=== PATIENT | male | born 1990 | race Caucasian/White ===

== ENCOUNTER 2018-06-15 09:43 | Inpatient (IN) | payer OTHER ==
[2018-06-15] MEDS ORDERED: ACETAMINOPHEN TAB 500 MG TAB PO STA (10:22)
[2018-06-15] MEDS ORDERED: SODIUM CHLORIDE 0.9% 1,000 ML IV STA (10:22)
--- NOTE | 2018-06-15 10:31 | ED ---
General Adult HPI - General Source: patient, family, RN notes reviewed Mode of arrival: wheelchair Limitations: no limitations <Hai Russell - Last Filed: 06/15/18 12:33> <Agus Burdick - Last Filed: 06/15/18 12:46> - General Chief complaint: Fever Stated complaint: Leg Pain, Poss Blood Clot Time Seen by Provider: 06/15/18 10:18 - History of Present Illness Initial comments: 28-year-old male with no significant past medical history, presented to the emergency room today with chief complaint of increased pain and rash to the right leg with a fever. Patient states his symptoms started 2 days ago. Patient denies ever having similar symptoms in the past. He also admits that he is felt some body aches chills and has had a headache. Patient does admit that he went to urgent care was advised coming here to the emergency room for further evaluation. Patient denies any recent shortness of breath, chest pain, back pain, abdominal pain, nausea or vomiting, numbness or tingling, visual changes, or any other complaints. (Hai Russell) - Related Data Home Medications Medication Instructions Recorded Confirmed No Known Home Medications 06/01/14 06/15/18 Allergies Allergy/AdvReac Type Severity Reaction Status Date / Time No Known Allergies Allergy Verified 06/15/18 10:06 Review of Systems ROS Other: All systems not noted in ROS Statement are negative. <Hai Russell - Last Filed: 06/15/18 12:33> ROS Other: All systems not noted in ROS Statement are negative. <Agus Burdick - Last Filed: 06/15/18 12:46> ROS Statement: Those systems with pertinent positive or pertinent negative responses have been documented in the HPI. Past Medical History Past Medical History: No Reported History History of Any Multi-Drug Resistant Organisms: None Reported Past Surgical History: No Surgical Hx Reported Past Psychological History: No Psychological Hx Reported Smoking Status: Never smoker Past Alcohol Use History: Occasional Past Drug Use History: None Reported <Hai Russell - Last Filed: 06/15/18 12:33> General Exam Limitations: no limitations <Hai Russell - Last Filed: 06/15/18 12:33> <Agus Burdick - Last Filed: 06/15/18 12:46> - General Exam Comments Initial Comments: General: The patient is awake and alert, in no distress, and does not appear acutely ill. Eye: Pupils are equal, round and reactive to light, extra-ocular movements are intact. No nystagmus. There is normal conjunctiva bilaterally. No signs of icterus. Ears, nose, mouth and throat: There are moist mucous membranes and no oral lesions. Neck: The neck is supple, there is no tenderness or JVD. Cardiovascular: There is a regular rate and rhythm. No murmur, rub or gallop is appreciated. Respiratory: Lungs are clear to auscultation, respirations are non-labored, breath sounds are equal. No wheezes, stridor, rales, or rhonchi. Gastrointestinal: Soft, non-distended, non-tender abdomen without masses or organomegaly noted. Musculoskeletal: Normal ROM, no tenderness. Strength 5/5. Sensation intact. Pedal Pulses equal bilaterally 2+. Neurological: A&O x 3. CN II-XII intact, There are no obvious motor or sensory deficits. Coordination appears grossly intact. Speech is normal. Skin: Redness and swelling to the right lower extremity. Rash to the anterior aspect going up to just below the right knee. Psychiatric: Cooperative, appropriate mood & affect, normal judgment. (Hai Russell) Course <Hai Russell - Last Filed: 06/15/18 12:33> <Agus Burdick - Last Filed: 06/15/18 12:46> Vital Signs 06/15/18 06/15/18 09:49 12:36 Temperature 100.1 F H 98.5 F Pulse Rate 104 H 74 Respiratory 20 18 Rate Blood Pressure 119/75 115/73 O2 Sat by Pulse 96 96 Oximetry - Reevaluation(s) Reevaluation #1: 06/15/18 12:44 Patient was reevaluated by myself, Dr. Burdick. Patient does have erythema right lower leg with some streaking up to the mid thigh. Patient does meet sepsis criteria, diagnosed at 11:59 AM. Patient has been provided IV antibiotics. Lactic acid and blood culture have been ordered. Case was discussed in detail with Dr. gross, who will admit for hospital call. Patient and family were updated. (Agus Burdick) Medical Decision Making - Lab Data Result diagrams: 06/15/18 10:53 06/15/18 10:53 <Hai Russell - Last Filed: 06/15/18 12:33> - Lab Data Result diagrams: 06/15/18 10:53 06/15/18 10:53 <Agus Burdick - Last Filed: 06/15/18 12:46> - Medical Decision Making Patient's labs been reviewed does show white count 15,000 with a lactic acid 2.4. Patient to have fever at triage. Had taken ibuprofen prior to arrival. Was given Tylenol. Resting comfortably at this time. Also negative for any evidence of a DVT. X-ray reviewed unremarkable. Patient started on antibiotics Unasyn to cover for infection be admitted for right lower leg cellulitis and sepsis. Patient's blood pressure stable and no need for further bolus of IV fluids. (Hai Russell) - Lab Data Lab Results 06/15/18 06/15/18 06/15/18 Range/Units 10:33 10:53 10:53 WBC 15.6 H (3.8-10.6) k/uL RBC 5.10 (4.30-5.90) m/uL Hgb 14.8 (13.0-17.5) gm/dL Hct 41.6 (39.0-53.0) % MCV 81.5 (80.0-100.0) fL MCH 29.1 (25.0-35.0) pg MCHC 35.7 (31.0-37.0) g/dL RDW 13.5 (11.5-15.5) % Plt Count 220 (150-450) k/uL Neutrophils % 89 % Lymphocytes % 5 % Monocytes % 5 % Eosinophils % 0 % Basophils % 0 % Neutrophils # 13.8 H (1.3-7.7) k/uL Lymphocytes # 0.8 L (1.0-4.8) k/uL Monocytes # 0.7 (0-1.0) k/uL Eosinophils # 0.1 (0-0.7) k/uL Basophils # 0.0 (0-0.2) k/uL Hyperchromasia Slight Sodium 133 L (137-145) mmol/L Potassium 4.2 (3.5-5.1) mmol/L Chloride 99 (98-107) mmol/L Carbon Dioxide 20 L (22-30) mmol/L Anion Gap 14 mmol/L BUN 13 (9-20) mg/dL Creatinine 0.94 (0.66-1.25) mg/dL Est GFR (CKD-EPI)AfAm >90 (>60 ml/min/1.73 sqM) Est GFR (CKD-EPI)NonAf >90 (>60 ml/min/1.73 sqM) Glucose 129 H (74-99) mg/dL Plasma Lactic Acid Solomon (0.7-2.0) mmol/L Calcium 9.0 (8.4-10.2) mg/dL Total Bilirubin 1.3 (0.2-1.3) mg/dL AST 24 (17-59) U/L ALT 21 (21-72) U/L Alkaline Phosphatase 54 (38-126) U/L Total Protein 7.6 (6.3-8.2) g/dL Albumin 4.0 (3.5-5.0) g/dL Urine Color Dark Yellow Urine Appearance Cloudy (Clear) Urine pH 6.0 (5.0-8.0) Ur Specific [place] 1.029 (1.001-1.035) Urine Protein 2+ H (Negative) Urine Glucose (UA) Negative (Negative) Urine Ketones Trace H (Negative) Urine Blood Negative (Negative) Urine Nitrite Negative (Negative) Urine Bilirubin Negative (Negative) Urine Urobilinogen <2.0 (<2.0) mg/dL Ur Leukocyte Esterase Negative (Negative) Urine RBC 2 (0-5) /hpf Urine WBC 1 (0-5) /hpf Ur Squamous Epith Cells <1 (0-4) /hpf Urine Bacteria Rare H (None) /hpf Urine Mucus Many H (None) /hpf 06/15/18 Range/Units 10:53 WBC (3.8-10.6) k/uL RBC (4.30-5.90) m/uL Hgb (13.0-17.5) gm/dL Hct (39.0-53.0) % MCV (80.0-100.0) fL MCH (25.0-35.0) pg MCHC (31.0-37.0) g/dL RDW (11.5-15.5) % Plt Count (150-450) k/uL Neutrophils % % Lymphocytes % % Monocytes % % Eosinophils % % Basophils % % Neutrophils # (1.3-7.7) k/uL Lymphocytes # (1.0-4.8) k/uL Monocytes # (0-1.0) k/uL Eosinophils # (0-0.7) k/uL Basophils # (0-0.2) k/uL Hyperchromasia Sodium (137-145) mmol/L Potassium (3.5-5.1) mmol/L Chloride (98-107) mmol/L Carbon Dioxide (22-30) mmol/L Anion Gap mmol/L BUN (9-20) mg/dL Creatinine (0.66-1.25) mg/dL Est GFR (CKD-EPI)AfAm (>60 ml/min/1.73 sqM) Est GFR (CKD-EPI)NonAf (>60 ml/min/1.73 sqM) Glucose (74-99) mg/dL Plasma Lactic Acid Solomon 2.4 H* (0.7-2.0) mmol/L Calcium (8.4-10.2) mg/dL Total Bilirubin (0.2-1.3) mg/dL AST (17-59) U/L ALT (21-72) U/L Alkaline Phosphatase (38-126) U/L Total Protein (6.3-8.2) g/dL Albumin (3.5-5.0) g/dL Urine Color Urine Appearance (Clear) Urine pH (5.0-8.0) Ur Specific [place] (1.001-1.035) Urine Protein (Negative) Urine Glucose (UA) (Negative) Urine Ketones (Negative) Urine Blood (Negative) Urine Nitrite (Negative) Urine Bilirubin (Negative) Urine Urobilinogen (<2.0) mg/dL Ur Leukocyte Esterase (Negative) Urine RBC (0-5) /hpf Urine WBC (0-5) /hpf Ur Squamous Epith Cells (0-4) /hpf Urine Bacteria (None) /hpf Urine Mucus (None) /hpf Disposition Is patient prescribed a controlled substance at d/c from ED?: No Time of Disposition: 12:34 <Hai Russell - Last Filed: 06/15/18 12:33> <Agus Burdick - Last Filed: 06/15/18 12:46> Clinical Impression: Cellulitis of right leg, Sepsis Disposition: ADMITTED IP TO THIS HOSP Condition: Good
[2018-06-15 11:07] LABS: Basophils % (A) 0 %; Eosinophils # (A) 0.1 k/uL (0-0.7); Eosinophils % (A) 0 %; HCT 41.6 % (39.0-53.0); HGB 14.8 gm/dL (13.0-17.5); Hyperchromasia Slight; Lymphocytes # (A) 0.8 k/uL (1.0-4.8); Lymphocytes % (A) 5 %; MCH 29.1 pg (25.0-35.0); MCHC 35.7 g/dL (31.0-37.0); MCV 81.5 fL (80.0-100.0); Mean Platelet Volume 6.7; Monocytes # (A) 0.7 k/uL (0-1.0); Monocytes % (A) 5 %; Neutrophils # (A) 13.8 k/uL (1.3-7.7); Neutrophils % (A) 89 %; Platelet Count 220 k/uL (150-450); RDW 13.5 % (11.5-15.5); WBC 15.6 k/uL (3.8-10.6)
[2018-06-15 11:14] LABS: Appearance,Urine Cloudy (Clear); Bacteria,Urine Rare /hpf; Bilirubin,Urine Negative (Negative); Blood,Urine Negative (Negative); Color,Urine Dark Yellow; Glucose,Urine (UA) Negative (Negative); Ketones,Urine Trace (Negative); Leukocyte Esterase,Urine Negative (Negative); Mucus,Urine Many /hpf; Nitrite,Urine Negative (Negative); Protein,Urine 2+ (Negative); RBC,Urine 2 /hpf (0-5); Specific Gravity,Urine 1.029 (1.001-1.035); Squamous Epithelial Cell,Urine <1 /hpf (0-4); Urobilinogen,Urine <2.0 mg/dL (<2.0)
[2018-06-15 11:18] LABS: ALT 21 U/L (21-72); AST 24 U/L (17-59); Alkaline Phosphatase 54 U/L (38-126); Anion Gap 14 mmol/L; Blood Urea Nitrogen 13 mg/dL (9-20); Carbon Dioxide 20 mmol/L (22-30); Chloride 99 mmol/L (98-107); Glucose 129 mg/dL (74-99); Potassium 4.2 mmol/L (3.5-5.1); Sodium 133 mmol/L (137-145); Total Bilirubin 1.3 mg/dL (0.2-1.3); Total Protein 7.6 g/dL (6.3-8.2)
--- NOTE | 2018-06-15 11:42 | US ---
EXAMINATION TYPE: US venous doppler duplex LE RT DATE OF EXAM: 06/15/2018 11:21 AM COMPARISON: NONE CLINICAL HISTORY: Pain. redness in right leg SIDE PERFORMED: Right TECHNIQUE: The lower extremity deep venous system is examined utilizing real time linear array sonog sheryl with graded compression, doppler sonography and color-flow sonography. VESSELS IMAGED: External Iliac Vein (EIV) Common Femoral Vein Deep Femoral Vein Greater Saphenous Vein * Femoral Vein Popliteal Vein Small Saphenous Vein * Proximal Calf Veins (* superficial vessels) Right Leg: Negative for DVT IMPRESSION: No evidence for DVT at this time.
[2018-06-15] MEDS ORDERED: AMPICILLIN-SULBACTAM 3 GM in SODIUM CHLORIDE 0.9% 100 ML IVPB STA (11:59)
[2018-06-15] MEDS ORDERED: ONDANSETRON 4 MG/2 ML VIAL IVP PRN (12:35)
[2018-06-15] MEDS ORDERED: SODIUM CHLORIDE 0.9% 1,000 ML IV ONE (12:35)
[2018-06-15] MEDS ORDERED: ACETAMINOPHEN TAB 325 MG TAB PO PRN (12:35)
[2018-06-15] MEDS ORDERED: NALOXONE 0.4 MG/ML 1 ML VIAL IV PRN (12:35)
--- NOTE | 2018-06-15 12:41 | XR ---
EXAMINATION TYPE: XR tibia fibula RT DATE OF EXAM: 06/15/2018 CLINICAL HISTORY: pain TECHNIQUE: AP and lateral images of the right tibia and fibula are obtained. COMPARISON: None. FINDINGS: There is no acute fracture/dislocation evident. The joint spaces appear within normal perez its. The overlying soft tissue appears unremarkable. IMPRESSION: There is no acute fracture or dislocation seen. ICD 10 NO FRACTURE, INITIAL EVALUATION
--- NOTE | 2018-06-15 15:43 | P.HPIM ---
History of Present Illness 8-year-old male with no significant past medical history, presented to the emergency room today with chief complaint of increased pain and rash to the right leg with a fever. Patient states his symptoms started 2 days ago. Patient denies ever having similar symptoms in the past. He also admits that he is felt some body aches chills and has had a headache. Patient does admit that he went to urgent care was advised coming here to the emergency room for further evaluation. Patient denies any recent shortness of breath, chest pain, back pain, abdominal pain, nausea or vomiting, numbness or tingling, visual changes, or any other complaints. Patient does have leukocytosis and also bit hyponatremic patient is on IV fluids and patient was started on Unasyn which is being changed to cefazolin never had any history of MRSA in the past. Review of Systems REVIEW OF SYSTEMS: CONSTITUTIONAL: no malaise, no fatigue. HEENT: No recent visual problems or hearing problems. Denied any sore throat. CARDIOVASCULAR: No chest pain, orthopnea, PND, no palpitations, no syncope. PULMONARY: No shortness of breath, no cough, no hemoptysis. GASTROINTESTINAL: No diarrhea, no nausea, no vomiting, no abdominal pain. Normoactive bowel sounds. NEUROLOGICAL: No headaches, no weakness, no numbness. HEMATOLOGICAL: Denies any bleeding or petechiae. GENITOURINARY: Denies any burning micturition, frequency, or urgency. MUSCULOSKELETAL/RHEUMATOLOGICAL: Denies any joint pain, swelling, or any muscle pain. ENDOCRINE: Denies any polyuria or polydipsia. The rest of the 14-point review of systems is negative. Past Medical History Past Medical History: No Reported History History of Any Multi-Drug Resistant Organisms: None Reported Past Surgical History: No Surgical Hx Reported Additional Past Anesthesia/Blood Transfusion Reaction / Comment(s): Pt has never had anesthesia. Smoking Status: Never smoker - Past Family History Father Family Medical History: No Reported History Additional Family Medical History / Comment(s): Father is healthy Mother Family Medical History: No Reported History Additional Family Medical History / Comment(s): Mother is healthy Medications and Allergies Home Medications Medication Instructions Recorded Confirmed Type No Known Home Medications 06/01/14 06/15/18 History Allergies Allergy/AdvReac Type Severity Reaction Status Date / Time No Known Allergies Allergy Verified 06/15/18 10:06 Physical Exam Vitals: Vital Signs Temp Pulse Pulse Resp BP BP Pulse Ox 06/15/18 13:47 97.8 F 76 18 122/76 95 06/15/18 13:22 98.5 F 84 18 119/76 98 06/15/18 12:36 98.5 F 74 18 115/73 96 06/15/18 09:49 100.1 F H 104 H 20 119/75 96 Intake and Output 06/15/18 06/15/18 06/15/18 06:59 14:59 22:59 Other: # Voids 1 # Bowel Movements 0 Weight 125.191 kg PHYSICAL EXAMINATION: GENERAL: The patient is alert and oriented x3, not in any acute distress. Well developed, well nourished. HEENT: Pupils are round and equally reacting to light. EOMI. No scleral icterus. No conjunctival pallor. Normocephalic, atraumatic. No pharyngeal erythema. No thyromegaly. CARDIOVASCULAR: S1 and S2 present. No murmurs, rubs, or gallops. PULMONARY: Chest is clear to auscultation, no wheezing or crackles. ABDOMEN: Soft, nontender, nondistended, normoactive bowel sounds. No palpable organomegaly. MUSCULOSKELETAL: No joint swelling or deformity. EXTREMITIES: No cyanosis, clubbing, or pedal edema. NEUROLOGICAL: Gross neurological examination did not reveal any focal deficits. SKIN: Patient has a circumferential patchy redness with local is of temperature Results CBC & Chem 7: 06/15/18 10:53 06/15/18 10:53 Labs: Abnormal Lab Results - Last 24 Hours (Table) 06/15/18 06/15/18 06/15/18 Range/Units 10:33 10:53 10:53 WBC 15.6 H (3.8-10.6) k/uL Neutrophils # 13.8 H (1.3-7.7) k/uL Lymphocytes # 0.8 L (1.0-4.8) k/uL Sodium 133 L (137-145) mmol/L Carbon Dioxide 20 L (22-30) mmol/L Glucose 129 H (74-99) mg/dL Plasma Lactic Acid Solomon (0.7-2.0) mmol/L Urine Protein 2+ H (Negative) Urine Ketones Trace H (Negative) Urine Bacteria Rare H (None) /hpf Urine Mucus Many H (None) /hpf 06/15/18 Range/Units 10:53 WBC (3.8-10.6) k/uL Neutrophils # (1.3-7.7) k/uL Lymphocytes # (1.0-4.8) k/uL Sodium (137-145) mmol/L Carbon Dioxide (22-30) mmol/L Glucose (74-99) mg/dL Plasma Lactic Acid Solomon 2.4 H* (0.7-2.0) mmol/L Urine Protein (Negative) Urine Ketones (Negative) Urine Bacteria (None) /hpf Urine Mucus (None) /hpf Thrombosis Risk Factor Assmnt - Choose All That Apply Any of the Below Risk Factors Present?: Yes Each Factor Represents 1 point: Obesity (BMI >25), Sepsis (< 1month) Other Risk Factors: No Other congenital or acquired thrombophilia - If yes, enter type in comment: No Thrombosis Risk Factor Assessment Total Risk Factor Score: 2 Thrombosis Risk Factor Assessment Level: Low Risk Assessment and Plan Plan: -Cellulitis of the right lower extremity: Patient will be started on ceftezole inhibitors and improvement patient will be discharged Tomorrow patient has sepsis secondary to select is - hypovolemic hyponatremia secondary to sepsis and prerenal azotemia continue with IV fluids repeat labs tomorrow Obesity: Counseling was provided
[2018-06-15] MEDS ORDERED: ceFAZolin 2,000 MG in DEXTROSE/WATER 1 50ML.BAG IVPB SCH (16:00)
[2018-06-15] MEDS: ceFAZolin IN SWFI 2 GM/20 ML SYRINGE IVP SCH (16:24)
[2018-06-15] MEDS ORDERED: AMPICILLIN-SULBACTAM 3 GM in SODIUM CHLORIDE 0.9% 100 ML IVPB SCH (18:00)
[2018-06-15 18:57] LABS: Glucose,Whole Blood 124 mg/dL (75-99)
[2018-06-16] MEDS: IBUPROFEN 400 MG TAB PO PRN ×4 (00:58→21:20)
[2018-06-16] MEDS: ceFAZolin IN SWFI 2 GM/20 ML SYRINGE IVP SCH ×3 (01:00→15:26)
[2018-06-16 09:26] LABS: Basophils % (A) 0 %; Eosinophils # (A) 0.1 k/uL (0-0.7); Eosinophils % (A) 1 %; HCT 37.7 % (39.0-53.0); HGB 13.1 gm/dL (13.0-17.5); Lymphocytes # (A) 1.2 k/uL (1.0-4.8); Lymphocytes % (A) 11 %; MCH 28.8 pg (25.0-35.0); MCHC 34.7 g/dL (31.0-37.0); Mean Platelet Volume 7.4; Monocytes # (A) 0.5 k/uL (0-1.0); Monocytes % (A) 5 %; Neutrophils # (A) 8.9 k/uL (1.3-7.7); Neutrophils % (A) 82 %; Platelet Count 172 k/uL (150-450); RBC 4.54 m/uL (4.30-5.90); RDW 13.7 % (11.5-15.5); WBC 10.9 k/uL (3.8-10.6)
[2018-06-16 09:47] LABS: ALT 20 U/L (21-72); AST 16 U/L (17-59); Albumin 2.9 g/dL (3.5-5.0); Alkaline Phosphatase 55 U/L (38-126); Anion Gap 8 mmol/L; Blood Urea Nitrogen 10 mg/dL (9-20); Calcium 8.2 mg/dL (8.4-10.2); Carbon Dioxide 25 mmol/L (22-30); Chloride 107 mmol/L (98-107); Glucose 160 mg/dL (74-99); Potassium 4.3 mmol/L (3.5-5.1); Sodium 140 mmol/L (137-145)
[2018-06-16 10:12] VITALS: BMI 38.5
[2018-06-17] MEDS: ceFAZolin IN SWFI 2 GM/20 ML SYRINGE IVP SCH ×4 (00:03→23:23)
[2018-06-17] MEDS: IBUPROFEN 400 MG TAB PO PRN ×3 (05:47→20:45)
--- NOTE | 2018-06-17 07:12 | CONS ---
CONSULTATION DATE OF SERVICE: 06/16/2018 REASON FOR CONSULTATION: Right lower extremity cellulitis. HISTORY OF PRESENT ILLNESS: The patient is a 28-year-old male presenting to the ER at [facility] with chief complaints of right leg swelling and redness of 2 days duration. The patient said that on Wednesday this week the patient started having a fever with chills and pain in his right leg area. The pain was mostly throbbing, at times dull aching, 5 to 6 out of 10. The next day he noticed the right leg was getting swollen and red as well with warmth to it and he started having a fever with rigors and chills. Fever has been as high as 102 degrees Fahrenheit. The patient initially did go to an Urgent Care and was advised to go to the ER for further evaluation of the same. The patient was evaluated by the ER physician. The patient did have a lower extremity Doppler that was negative for DVT. X-rays were negative for any bony changes. On presentation, the patient did have a fever of 100.1 and his white count was elevated to 15.6. The patient has been diagnosed with acute right lower extremity cellulitis, started on cefazolin 2 grams along with Silvadene cream. Infectious Disease was consulted today for further recommendation regarding antibiotic therapy. REVIEW OF SYSTEMS: CONSTITUTIONAL: Positive for weakness along with the fever and chills. EYES: No complaint. ENT: No complaint. RESPIRATORY: No complaint. CARDIOVASCULAR: No complaint. GENITOURINARY: No complaint. GASTROINTESTINAL: No complaint. MUSCULOSKELETAL: No complaint. INTEGUMENTARY: As per HPI. PSYCHOLOGICAL: No complaint. ENDOCRINE: No complaint. NEUROLOGIC: No complaint. PAST MEDICAL HISTORY: No illnesses. PAST SURGICAL HISTORY: No surgeries. SOCIAL HISTORY: The patient denies smoking, drinking, or drug use. FAMILY HISTORY: No pertinent findings noticed. ALLERGIES: No known drug allergies. MEDICATIONS: Medications include the patient is currently on Tylenol, cefazolin 2 grams q.8, Motrin, Narcan, and Zofran. PHYSICAL EXAMINATION: On examination, blood pressure 122/86, pulse 106, temperature 98.2. He is 96% on room air. General description is a middle-aged male lying in bed in no distress. No tachypnea or accessory muscle of respiration use. HEENT examination shows no pallor or scleral icterus. Oral mucous membrane is dry. No pharyngeal erythema or thrush. NECK: Trachea central. No thyromegaly. LUNGS: Unlabored breathing, clear to auscultation anteriorly. No wheeze or crackle. HEART: S1, S2. Regular rate and rhythm. ABDOMEN: Soft, no tenderness. No guarding or rigidity. Right leg is swollen and red and warm to touch. No evidence of athlete's foot. No skin breakdown or any drainage. NEUROLOGICAL: The patient is awake, alert, oriented x3. Mood and affect normal. LABS: Hemoglobin is 13.1, white count of 10.9. BUN of 10, creatinine 0.69. Lactic acid elevated on admission 2.4 down to 2 today. Blood cultures have been negative so far. Lower extremity Doppler was negative for DVT. DIAGNOSTIC IMPRESSION AND PLAN: Patient with acute right lower extremity cellulitis in this patient who does have a diffuse swelling and redness likely representing a streptococcal cellulitis, clinically doubt methicillin-resistant Staphylococcus aureus infection. PLAN: 1. Discontinue the Silvadene. 2. Cefazolin 2 grams q.8 hours for at least another 24 hours. 3. JANKI wrap from just above the toe to below the knee. 4. We will re-evaluate the patient tomorrow and if the patient did have an overall clinical improvement, he will be able to finish therapy with oral Keflex 500 mg q.6 hours for another 10 days with close outpatient followup. MMCYNL / KENNEY: [id number] /
[2018-06-17] MEDS ORDERED: SILVER sulfADIAZINE Cream 400 GM 1 APPLIC APPLIC TOPICAL SCH (09:00)
--- NOTE | 2018-06-17 16:19 | P.PN ---
Subjective Progress Note Date: 06/16/18 Progress note being dictated for Dr. Weber Interval history: This is 28 old male with no significant past medical history, presented to the emergency room today with chief complaint of increased pain and rash to the right leg with a fever. Patient states his symptoms started 2 days ago. Patient denies ever having similar symptoms in the past. He also admits that he is felt some body aches chills and has had a headache. Patient does admit that he went to urgent care was advised coming here to the emergency room for further evaluation. Patient denies any recent shortness of breath, chest pain, back pain, abdominal pain, nausea or vomiting, numbness or tingling , visual changes, or any other complaints. Patient does have leukocytosis and also bit hyponatremic patient is on IV fluids and patient was started on Unasyn which is being changed to cefazolin never had any history of MRSA in the past. 06/16/2018 T-max 100.1. Doppler negative for DVT. Cellulitis extending up into the thigh area. Maintained on IV antibiotics of Cefazolin. Evaluated by infectious disease. Sodium has normalized with IV hydration. Objective - Vital Signs Vital signs: Vital Signs Temp 99.2 F 06/16/18 15:00 Pulse 106 H 06/16/18 15:00 Resp 18 06/16/18 15:00 BP 128/74 06/16/18 15:05 Pulse Ox 96 06/16/18 15:00 Intake & Output 06/16/18 06/16/18 06/17/18 06:59 18:59 06:59 Intake Total 400 960 Balance 400 960 Weight 125.191 kg Intake: Oral 400 960 Other: Voiding Method Toilet # Voids 2 - Exam GENERAL: The patient is alert and oriented x3, not in any acute distress. Well developed, well nourished. HEENT: Pupils are round and equally reacting to light. EOMI. No scleral icterus. No conjunctival pallor. Normocephalic, atraumatic. No pharyngeal erythema. No thyromegaly. CARDIOVASCULAR: S1 and S2 present. No murmurs, rubs, or gallops. PULMONARY: Chest is clear to auscultation, no wheezing or crackles. ABDOMEN: Soft, nontender, nondistended, normoactive bowel sounds. No palpable organomegaly. MUSCULOSKELETAL: No joint swelling or deformity. EXTREMITIES: No cyanosis, clubbing, or pedal edema. NEUROLOGICAL: Gross neurological examination did not reveal any focal deficits. SKIN: Right leg warm, edematous, patchy reddeness extending up to inner thigh area. - Labs CBC & Chem 7: 06/16/18 09:06 06/16/18 09:06 Labs: Abnormal Lab Results - Last 24 Hours (Table) 06/16/18 06/16/18 Range/Units 09:06 09:06 WBC 10.9 H (3.8-10.6) k/uL Hct 37.7 L (39.0-53.0) % Neutrophils # 8.9 H (1.3-7.7) k/uL Glucose 160 H (74-99) mg/dL Calcium 8.2 L (8.4-10.2) mg/dL AST 16 L (17-59) U/L ALT 20 L (21-72) U/L Total Protein 6.0 L (6.3-8.2) g/dL Albumin 2.9 L (3.5-5.0) g/dL Microbiology - Last 24 Hours (Table) 06/15/18 10:53 Blood Culture - Preliminary Blood No Growth after 24 hours Assessment and Plan Assessment: -Cellulitis of the right lower extremity, suspect streptococcal - hypovolemic hyponatremia secondary to sepsis and prerenal azotemia, resolved. Obesity: Counseling was provided Plan: Continue current medication regime ,monitoring and symptomatic treatment. IV antibiotics as per infectious disease. Discharge planning in progress for tomorrow pending clinical improvement. The impression and plan of care has been dictated as directed. : I performed a history and examination of this patient, discussed the same with the dictator. I agree with the dictator's note ,documented as a scribe. Any additional findings or plans will be noted.
--- NOTE | 2018-06-17 16:22 | P.PN ---
Subjective Progress Note Date: 06/17/18 Progress note being dictated for Dr. Weber Interval history: This is 28 old male with no significant past medical history, presented to the emergency room today with chief complaint of increased pain and rash to the right leg with a fever. Patient states his symptoms started 2 days ago. Patient denies ever having similar symptoms in the past. He also admits that he is felt some body aches chills and has had a headache. Patient does admit that he went to urgent care was advised coming here to the emergency room for further evaluation. Patient denies any recent shortness of breath, chest pain, back pain, abdominal pain, nausea or vomiting, numbness or tingling , visual changes, or any other complaints. Patient does have leukocytosis and also bit hyponatremic patient is on IV fluids and patient was started on Unasyn which is being changed to cefazolin never had any history of MRSA in the past. 06/16/2018 T-max 100.1. Doppler negative for DVT. Cellulitis extending up into the thigh area. Maintained on IV antibiotics of Cefazolin. Evaluated by infectious disease. Sodium has normalized with IV hydration. 06/17/2018 maintained on IV antibiotics, slow improvement. T-max 99.1, leukocytosis improving. Preliminary blood cultures negative. Denies chest pain , palpitations or shortness of breath. Objective - Vital Signs Vital signs: Vital Signs Temp 99.1 F 06/17/18 15:00 Pulse 89 06/17/18 15:00 Resp 18 06/17/18 15:00 BP 130/65 06/17/18 15:00 Pulse Ox 98 06/17/18 15:00 Intake & Output 06/16/18 06/17/18 06/17/18 18:59 06:59 18:59 Intake Total 960 200 240 Balance 960 200 240 Weight 125.191 kg Intake: Oral 960 200 240 Other: # Voids 2 1 2 - Exam GENERAL: The patient is alert and oriented x3, not in any acute distress. Well developed, well nourished. HEENT: Pupils are round and equally reacting to light. EOMI. No scleral icterus. No conjunctival pallor. Normocephalic, atraumatic. CARDIOVASCULAR: S1 and S2 present. No murmurs, rubs, or gallops. PULMONARY: Chest is clear to auscultation, no wheezing or crackles. ABDOMEN: Soft, nontender, nondistended, normoactive bowel sounds. No palpable organomegaly. MUSCULOSKELETAL: No joint swelling or deformity. EXTREMITIES: No cyanosis, clubbing, or pedal edema. NEUROLOGICAL: Gross neurological examination did not reveal any focal deficits. SKIN: Slowly improving -Right leg warm, edematous, patchy reddeness extending up to inner thigh area. - Labs CBC & Chem 7: 06/16/18 09:06 06/16/18 09:06 Labs: Microbiology - Last 24 Hours (Table) 06/15/18 10:53 Blood Culture - Preliminary Blood No Growth after 48 hours Assessment and Plan Assessment: -Cellulitis of the right lower extremity, suspect streptococcal - hypovolemic hyponatremia secondary to sepsis and prerenal azotemia, resolved. Obesity: Counseling was provided Plan: Continue current medication regime ,monitoring and symptomatic treatment. IV antibiotics as per infectious disease. Discharge planning in progress for tomorrow pending clinical improvement. The impression and plan of care has been dictated as directed. : I performed a history and examination of this patient, discussed the same with the dictator. I agree with the dictator's note ,documented as a scribe. Any additional findings or plans will be noted.
[2018-06-17] MEDS: PANTOPRAZOLE 40 MG/10 ML VIAL IVP SCH (16:35)
--- NOTE | 2018-06-17 23:35 | PN ---
PROGRESS NOTE DATE OF SERVICE: 06/17/2018. REASON FOR FOLLOWUP: Right leg cellulitis. INTERVAL HISTORY: The patient is afebrile, has been breathing comfortably. Currently significant swollen and red with minimal improvement in his pain. Denies having any chest pain, shortness of breath or cough. No abdominal pain. No diarrhea. EXAMINATION: Blood pressure 130/65, pulse of 89, temperature of 99.1. He is 98% on room air. General description is a middle-aged male lying in bed in no distress. Respiratory system: Unlabored breathing. Clear to auscultation anteriorly. Heart S1, S2. Regular rate and rhythm. ABDOMEN: Soft, no tenderness. Right leg still has swelling and redness though minimally decreased. LABS: No new lab have been obtained today. Blood culture has been negative. DIAGNOSTIC IMPRESSION AND PLAN: Patient acute right lower extremity cellulitis with diffuse swelling and redness likely streptococcal disease keep the patient on IV cefazolin 2 g every 8h for at least another 24 hours along with Mendoza wrap to keep the swelling down. Once the patient did have overall improvement, will be able to go home tomorrow on oral Keflex 500 mg q.6 hours for another 10 days with close outpatient followup. MMODL / IJN: [id number] /
[2018-06-18] MEDS: IBUPROFEN 400 MG TAB PO PRN (10:55)
[2018-06-18] MEDS: PANTOPRAZOLE 40 MG/10 ML VIAL IVP SCH (11:00)
[2018-06-18] MEDS: ceFAZolin IN SWFI 2 GM/20 ML SYRINGE IVP SCH (13:02)
[2018-06-18 14:26] VITALS: BP 125/79; PULSE 94; RESP 16; TEMP 98.9
--- NOTE | 2018-06-18 14:30 | P.DS ---
Providers Date of admission: 06/15/18 12:00 Attending physician: Issa Arvizu MD Consults: 06/16/18 14:36 Consult Physician Routine Consulting Provider: Buffy Hopson Consult Reason/Comments: cellulitis right leg Do you want consulting provider notified?: Yes Primary care physician: Stated None Hospital Course: This is 28 old male with no significant past medical history, presented to the emergency room today with chief complaint of increased pain and rash to the right leg with a fever. Patient states his symptoms started 2 days ago. Patient denies ever having similar symptoms in the past. He also admits that he is felt some body aches chills and has had a headache. Patient does admit that he went to urgent care was advised coming here to the emergency room for further evaluation. Patient denies any recent shortness of breath, chest pain, back pain, abdominal pain, nausea or vomiting, numbness or tingling, visual changes, or any other complaints. Patient does have leukocytosis and also bit hyponatremic patient is on IV fluids and patient was started on Unasyn which is being changed to cefazolin never had any history of MRSA in the past. 06/16/2018 T-max 100.1. Doppler negative for DVT. Cellulitis extending up into the thigh area. Maintained on IV antibiotics of Cefazolin. Evaluated by infectious disease. Sodium has normalized with IV hydration. 06/17/2018 maintained on IV antibiotics, slow improvement. T-max 99.1, leukocytosis improving. Preliminary blood cultures negative. Denies chest pain , palpitations or shortness of breath. 06/18/2018 Patient's redness in the right lower extremity did improve patient is alert clinical doing well did be discharged on Keflex find it every 6 for 10 days follow-up with Dr. bright as an outpatient - Exam GENERAL: The patient is alert and oriented x3, not in any acute distress. Well developed, well nourished. HEENT: Pupils are round and equally reacting to light. EOMI. No scleral icterus. No conjunctival pallor. Normocephalic, atraumatic. CARDIOVASCULAR: S1 and S2 present. No murmurs, rubs, or gallops. PULMONARY: Chest is clear to auscultation, no wheezing or crackles. ABDOMEN: Soft, nontender, nondistended, normoactive bowel sounds. No palpable organomegaly. MUSCULOSKELETAL: No joint swelling or deformity. EXTREMITIES: No cyanosis, clubbing, or pedal edema. NEUROLOGICAL: Gross neurological examination did not reveal any focal deficits. SKIN: Slowly improving -Right leg warm, edematous, patchy reddeness extending up to inner thigh area. Assessment and Plan Assessment: -Cellulitis of the right lower extremity, suspect streptococcal - hypovolemic hyponatremia secondary to sepsis and prerenal azotemia, resolved. Obesity: Counseling was provided Patient Condition at Discharge: Good Plan - Discharge Summary Discharge Rx Participant: Yes New Discharge Prescriptions: New Omeprazole [PriLOSEC] 20 mg PO DAILY #7 cap Cephalexin [Keflex] 500 mg PO Q6HR #40 cap Discharge Medication List Omeprazole [PriLOSEC] 20 mg PO DAILY #7 cap 06/16/18 [Rx] Cephalexin [Keflex] 500 mg PO Q6HR #40 cap 06/18/18 [Rx] Follow up Appointment(s)/Referral(s): Shantanu Rivas MD [STAFF PHYSICIAN] - 1 Week Buffy Hopson MD [STAFF PHYSICIAN] - 1 Week Ambulatory/Diagnostic Orders: Complete Blood Count w/diff [LAB.AMB] Time Frame: 3 Days, Location: None Selected Patient Instructions/Handouts: Cellulitis (DC) Activity/Diet/Wound Care/Special Instructions: activity as tolerated regular diet right leg--JANKI wrap Discharge/Stand Alone Forms: Work/School Release
--- NOTE | 2018-06-18 17:04 | PN ---
PROGRESS NOTE DATE OF SERVICE: 06/18/2018 REASON FOR FOLLOWUP: Right leg cellulitis. INTERVAL HISTORY: The patient is afebrile, has been breathing comfortably. Denies having any chest pain or shortness of breath or cough. No abdominal pain. The right leg swelling and redness have improved. No diarrhea with antibiotic therapy. PHYSICAL EXAMINATION: Blood pressure 125/79 with a pulse of 94, temperature 98.9. He is 95% on room air. General description is a middle-aged male lying in bed in no distress. RESPIRATORY SYSTEM: Unlabored breathing. Clear to auscultation anteriorly. HEART: S1, S2. Regular rate and rhythm. ABDOMEN: Soft. No tenderness. Right leg swelling and redness have decreased. LABS: No new labs have been obtained today. Blood culture has been negative. DIAGNOSTIC IMPRESSION AND PLAN: Patient with acute right lower extremity cellulitis. The patient seems to have shown clinical improvement. Will be planning on finishing therapy with oral Keflex 500 mg q.6 hours for another week. Prescription has been sent to the pharmacy. He will have close outpatient followup. Continue with supportive care. MMODL / IJN: [id number] /
== END 2018-06-18 16:36 | disposition home or self-care (01) | DRG 872 ==
LOC: EC 09:43 → 4MS4W 12:00
PROVIDERS: ADMIT Internal Medicine; ATTEND Internal Medicine
DX: A41.9 Sepsis, unspecified organism (principal); E87.1 Hypo-osmolality and hyponatremia; L03.115 Cellulitis of right lower limb; B95.5 Unspecified streptococcus as the cause of diseases classified elsewhere; E66.9 Obesity, unspecified; Z68.38 Body mass index [BMI] 38.0-38.9, adult; Z71.3 Dietary counseling and surveillance
CPT/HCPCS: 36415; 80053; 81001; 83605; 85025; 87040; 96361; 96365; 99285

== ENCOUNTER 2019-04-28 16:27 | Emergency (ER) | payer BC, OTHER ==
[2019-04-28 16:50] VITALS: BP 138/89; PULSE 91; RESP 18; TEMP 98.6
[2019-04-28] MEDS ORDERED: KETOROLAC 30 MG/ML 1 ML VIAL IM STA (17:03)
--- NOTE | 2019-04-28 17:15 | ED ---
General Adult HPI - General Chief complaint: Upper Respiratory Infection Stated complaint: fever/rash Time Seen by Provider: 04/28/19 16:53 Source: patient Mode of arrival: ambulatory Limitations: no limitations - History of Present Illness Initial comments: Dictation was produced using [employer] dictation software. please excuse any gram matical, word or spelling errors. Chief Complaint: 29-year-old male sent in from urgent care for concerns of meningitis. History of Present Illness: 29-year-old maladies been having waxing and waning URI type symptoms. He was seen at [facility] [place] earlier today. He told them that he had mild headache. His also been having diffuse muscle aches. His symptoms started several days ago when away for a couple days and return. Patient's been having nasal congestion, runny nose. States she's been having aches and pains all over his body. Patient has any fever or constitutional symptoms. Seen at urgent care and they don't come to the emergency department for concerns of meningitis. Patient denies any neck pain, neck stiffness. He denies any neuro deficits. Patient also concerns of this rash that's on his forehead and scalp. Does have a mild sore throat. The ROS documented in this emergency department record has been reviewed and confirmed by me. Those systems with pertinent positive or negative responses have been documented in the HPI. All other systems are other negative and/or noncontributory. PHYSICAL EXAM: General Impression: Alert and oriented x3, not in acute distress HEENT: Normocephalic atraumatic, extra-ocular movements intact, pupils equal and reactive to light bilaterally, mucous membranes moist, no pharyngeal exudates. For GI erythema present, uvula midline without any peritonsillar fullness Cardiovascular: Heart regular rate and rhythm, S1&S2 audible, no murmurs, rubs or gallops Chest: Lungs clear to auscultation bilaterally, no rhonchi, no wheeze, no rales Abdomen: Bowel sounds present, abdomen soft, non-tender, non-distended, no organomegaly Musculoskeletal: Pulses present and equal in all extremities, no peripheral edema Motor: no focal deficits noted Neurological: CN II-XII grossly intact, no focal motor or sensory deficits noted. Negative Kernig's, negative jolt test, negative Brudzinski's, negative Lhermitte sign Skin: Acne vulgaris to the head and cheek area Psych: Normal affect and mood ED course: 29 y Old male presents with URI-type symptoms. Patient does not have meningitis. Upon arrival are within acceptable limits. Patient's symptoms are likely secondary to URI. Patient with Toradol. Rapid strep, influenza and heterophile antibody test was ordered. Obstructive test negative. Heterophile antibody is negative. Patient clinical presentation is consistent with URI. No concerns for meningitis at this time given that patient is mentally normal without any neuro deficits with stable vital signs. He has no neck pain to suggest symptoms of meningitis. Patient understandable agreeable to plan. Patient will have his throat swab sent for culture to determine need for antibiotics. He is told to follow-up in 2 days. Patient otherwise told to follow-up with primary care physician upon discharge. Patient requests work note. Work note provided. - Related Data Previous Rx's Medication Instructions Recorded Omeprazole [PriLOSEC] 20 mg PO DAILY #7 cap 06/16/18 Cephalexin [Keflex] 500 mg PO Q6HR #40 cap 06/18/18 Allergies Allergy/AdvReac Type Severity Reaction Status Date / Time No Known Allergies Allergy Verified 04/28/19 16:46 Review of Systems ROS Statement: Those systems with pertinent positive or pertinent negative responses have been documented in the HPI. ROS Other: All systems not noted in ROS Statement are negative. Past Medical History Past Medical History: No Reported History History of Any Multi-Drug Resistant Organisms: None Reported Past Surgical History: No Surgical Hx Reported Additional Past Anesthesia/Blood Transfusion Reaction / Comment(s): Pt has never had anesthesia. Past Psychological History: No Psychological Hx Reported Smoking Status: Never smoker Past Alcohol Use History: None Reported Past Drug Use History: None Reported - Past Family History Father Family Medical History: No Reported History Additional Family Medical History / Comment(s): Father is healthy Mother Family Medical History: No Reported History Additional Family Medical History / Comment(s): Mother is healthy General Exam Limitations: no limitations Course Vital Signs 04/28/19 16:46 Temperature 98.6 F Pulse Rate 91 Respiratory 18 Rate Blood Pressure 138/89 O2 Sat by Pulse 96 Oximetry Medical Decision Making - Lab Data Lab Results 04/28/19 04/28/19 Range/Units 17:10 17:16 Heterophile Antibody Negative (Negative) Group A Strep Rapid Negative (Negative) Disposition Clinical Impression: Common cold Disposition: HOME SELF-CARE Condition: Good Instructions (If sedation given, give patient instructions): Upper Respiratory Infection (ED) Is patient prescribed a controlled substance at d/c from ED?: No Referrals: Shantanu Rivas MD [Primary Care Provider] - 1-2 days Time of Disposition: 18:24
== END 2019-04-28 18:39 | disposition home or self-care (01) ==
LOC: EC 16:27
DX: J00 Acute nasopharyngitis [common cold] (principal); L70.0 Acne vulgaris
CPT/HCPCS: 36415; 86308; 87081; 87430; 99283; 96372; J1885

== ENCOUNTER 2019-07-18 09:15 | Emergency (ER) | payer BC ==
[2019-07-18 09:36] VITALS: BP 147/94; PULSE 99; RESP 18; TEMP 99.2
--- NOTE | 2019-07-18 09:47 | ED ---
General Adult HPI - General Chief complaint: Eye Problems Stated complaint: rt eye irritation Time Seen by Provider: 07/18/19 09:38 Source: patient, RN notes reviewed Mode of arrival: ambulatory Limitations: no limitations - History of Present Illness Initial comments: This a 29-year-old male presents emergency Department with chief complaint of right eye irritation. Patient states she's had severe sinus issues over the last 1 week with no improvement states that on last couple days she's had right eye redness. Patient states his been crusted, drain. No ocular pain no blurred vision. Patient states that he has green nasal discharge, seen drainage from his right eye. No headache no dizziness no ear pain this time. He does have a cough in the morning and when he lays down at nighttime. - Related Data Previous Rx's Medication Instructions Recorded Omeprazole [PriLOSEC] 20 mg PO DAILY #7 cap 06/16/18 Cephalexin [Keflex] 500 mg PO Q6HR #40 cap 06/18/18 Amoxicillin 875 mg PO Q12HR #20 tablet 07/18/19 Tobramycin [Tobrex 0.3% Ophth Soln] 1 drop LEFT EYE Q4HR #5 ml 07/18/19 Allergies Allergy/AdvReac Type Severity Reaction Status Date / Time No Known Allergies Allergy Verified 07/18/19 09:32 Review of Systems ROS Statement: Those systems with pertinent positive or pertinent negative responses have been documented in the HPI. ROS Other: All systems not noted in ROS Statement are negative. Past Medical History Past Medical History: No Reported History History of Any Multi-Drug Resistant Organisms: None Reported Past Surgical History: No Surgical Hx Reported Additional Past Anesthesia/Blood Transfusion Reaction / Comment(s): Pt has never had anesthesia. Past Psychological History: No Psychological Hx Reported Smoking Status: Never smoker Past Alcohol Use History: None Reported Past Drug Use History: None Reported - Past Family History Father Family Medical History: No Reported History Additional Family Medical History / Comment(s): Father is healthy Mother Family Medical History: No Reported History Additional Family Medical History / Comment(s): Mother is healthy General Exam Limitations: no limitations General appearance: alert, in no apparent distress Head exam: Present: atraumatic, normocephalic, normal inspection Eye exam: Present: PERRL, EOMI, conjunctival injection (Moderate right with p urulent drainage). Absent: normal appearance, scleral icterus, periorbital swelling ENT exam: Present: mucous membranes moist, TM's normal bilaterally, normal external ear exam. Absent: normal exam (Mild sinus tenderness), normal oropharynx (Post is a drainage) Neck exam: Present: normal inspection, full ROM. Absent: tenderness, meningismus, lymphadenopathy Respiratory exam: Present: normal lung sounds bilaterally. Absent: respiratory distress, wheezes, rales, rhonchi, stridor Cardiovascular Exam: Present: regular rate, normal rhythm, normal heart sounds. Absent: systolic murmur, diastolic murmur, rubs, gallop, clicks Course Vital Signs 07/18/19 09:33 Temperature 99.2 F Pulse Rate 99 Respiratory 18 Rate Blood Pressure 147/94 O2 Sat by Pulse 94 L Oximetry Medical Decision Making - Medical Decision Making Patient has a right I conjunctivitis. Most likely underlying sinusitis issue he's had purulent drainage first over a week from his sinuses. Patient we placed an oral antibiotics for acute sinusitis, right eye drops right eye conjunctivitis follow-up and return parameters were given. Disposition Clinical Impression: Bacterial conjunctivitis, Acute sinusitis Disposition: HOME SELF-CARE Condition: Stable Instructions (If sedation given, give patient instructions): Conjunctivitis (ED), Sinusitis (ED) Additional Instructions: Please return to the Emergency Department if symptoms worsen or any other concerns. Prescriptions: Amoxicillin 875 mg PO Q12HR #20 tablet Tobramycin [Tobrex 0.3% Ophth Soln] 1 drop LEFT EYE Q4HR #5 ml Is patient prescribed a controlled substance at d/c from ED?: No Referrals: Shantanu Rivas MD [Primary Care Provider] - 1-2 days Time of Disposition: 09:46
== END 2019-07-18 09:51 | disposition home or self-care (01) ==
LOC: EC 09:15
DX: H10.89 Other conjunctivitis (principal); J01.90 Acute sinusitis, unspecified
CPT/HCPCS: 99283

== ENCOUNTER 2021-12-24 11:40 | Emergency (ER) | payer BC ==
[2021-12-24 11:54] VITALS: BP 114/75; PULSE 70; RESP 16; TEMP 98.2
[2021-12-24] MEDS ORDERED: PROPARACAINE 0.5% OPHTH DROPS 15 ML BTL RIGHT EYE STA (13:42)
[2021-12-24] MEDS ORDERED: FLUORESCEIN STRIPS 1 MG STRIP RIGHT EYE ONE (13:42)
[2021-12-24] MEDS ORDERED: TOBRAMYCIN 0.3% OPHTH DROPS 5 ML BTL RIGHT EYE STA (13:59)
--- NOTE | 2021-12-24 14:01 | ED ---
Eye Problem HPI - General Chief complaint: Eye Problems Stated complaint: eye problem Time Seen by Provider: 12/24/21 13:40 Source: patient, RN notes reviewed Mode of arrival: ambulatory Limitations: no limitations - History of Present Illness Initial comments: 31-year-old male presents emergency Department chief complaint of right eye irritation. Patient states he feels like he has seen his right eye. He denies noting get anything in his eye that he knows of but states it does feel like that. Patient states is up-to-date denies any blurred vision denies any corrective lenses. He states that he has increased tearing mild redness to his right eye. - Related Data Previous Rx's Medication Instructions Recorded Omeprazole [PriLOSEC] 20 mg PO DAILY #7 cap 06/16/18 Cephalexin [Keflex] 500 mg PO Q6HR #40 cap 06/18/18 Amoxicillin 875 mg PO Q12HR #20 tablet 07/18/19 Tobramycin [Tobrex 0.3% Ophth Soln] 1 drop LEFT EYE Q4HR #5 ml 07/18/19 Allergies Allergy/AdvReac Type Severity Reaction Status Date / Time No Known Allergies Allergy Verified 12/24/21 11:54 Review of Systems ROS Statement: Those systems with pertinent positive or pertinent negative responses have been documented in the HPI. ROS Other: All systems not noted in ROS Statement are negative. Past Medical History Past Medical History: No Reported History History of Any Multi-Drug Resistant Organisms: None Reported Past Surgical History: No Surgical Hx Reported Additional Past Anesthesia/Blood Transfusion Reaction / Comment(s): Pt has never had anesthesia. Past Psychological History: No Psychological Hx Reported Smoking Status: Never smoker Past Alcohol Use History: None Reported Past Drug Use History: None Reported - Past Family History Father Family Medical History: No Reported History Additional Family Medical History / Comment(s): Father is healthy Mother Family Medical History: No Reported History Additional Family Medical History / Comment(s): Mother is healthy General Exam Limitations: no limitations General appearance: alert, in no apparent distress Head exam: Present: atraumatic, normocephalic, normal inspection Eye exam: Present: PERRL, EOMI, conjunctival injection (Mild right), other (Fluorescein dye and Wood's lamp were used to about the right eye there is uptake in the central cornea region patient full pain relief with proparacaine drops). Absent: normal appearance, scleral icterus, periorbital swelling ENT exam: Present: normal exam, mucous membranes moist Neck exam: Present: normal inspection, full ROM. Absent: tenderness, meningismus, lymphadenopathy Respiratory exam: Present: normal lung sounds bilaterally. Absent: respiratory distress, wheezes, rales, rhonchi, stridor Cardiovascular Exam: Present: regular rate, normal rhythm, normal heart sounds. Absent: systolic murmur, diastolic murmur, rubs, gallop, clicks Course Vital Signs 12/24/21 11:51 Temperature 98.2 F Pulse Rate 70 Respiratory 16 Rate Blood Pressure 114/75 O2 Sat by Pulse 95 Oximetry Medical Decision Making - Medical Decision Making Patient has corneal abrasion noted the right eye with no foreign body. Tobrex eyedrops were started patient is Tobrex eyedrops for 5 days he'll follow-up with yarn conditioner for recheck and return for any worsening changing symptoms. No foreign body noted. Disposition Clinical Impression: Right corneal abrasion Disposition: HOME SELF-CARE Condition: Stable Instructions (If sedation given, give patient instructions): Corneal Abrasion (ED) Additional Instructions: Use Tobrex eyedrops 1 drop every 4 hours for 5 days. Please follow-up with yarn conditioner.Please return to the Emergency Department if symptoms worsen or any other concerns. Is patient prescribed a controlled substance at d/c from ED?: No Referrals: Erwin White DO [Primary Care Provider] - 1-2 days Alexx Mahan MD [STAFF PHYSICIAN] - 1-2 days Time of Disposition: 14:01
== END 2021-12-24 14:19 | disposition home or self-care (01) ==
LOC: EC 11:40
DX: S05.01XA Injury of conjunctiva and corneal abrasion without foreign body, right eye, initial encounter (principal)
CPT/HCPCS: 99283

== ENCOUNTER 2022-12-12 01:37 | Emergency (ER) | payer BC, OTHER ==
[2022-12-12] MEDS ORDERED: TOPICAL SKIN ADHESIVE 1 EACH AMP TOPICAL ONE (02:03)
--- NOTE | 2022-12-12 02:05 | ED ---
Wound/Laceration HPI - General Chief Complaint: Wound/Laceration Stated Complaint: Right hand injury,[facility] Time Seen by Provider: 12/12/22 02:03 Source: patient Mode of arrival: ambulatory Limitations: no limitations - History of Present Illness Initial Comments: This patient is a 32-year-old man who presents evaluation of palm injury. The patient states he was at work and he cut the palm of his right hand on a table that was exposed. He is not sure when his last tetanus shot is been given but believes it was when he was a teenager. Patient denies any loss of function. Onset/Timin -: hour(s) Extremity Location: Right: Hand Place: work Patient Tetanus UTD: No Context: accidental Associated Symptoms: none - Related Data Previous Rx's Medication Instructions Recorded Omeprazole [PriLOSEC] 20 mg PO DAILY #7 cap 06/16/18 Cephalexin [Keflex] 500 mg PO Q6HR #40 cap 06/18/18 Amoxicillin 875 mg PO Q12HR #20 tablet 07/18/19 Tobramycin [Tobrex 0.3% Ophth Soln] 1 drop LEFT EYE Q4HR #5 ml 07/18/19 Allergies Allergy/AdvReac Type Severity Reaction Status Date / Time No Known Allergies Allergy Verified 12/24/21 11:54 Review of Systems ROS Statement: Those systems with pertinent positive or pertinent negative responses have been documented in the HPI. ROS Other: All systems not noted in ROS Statement are negative. Constitutional: Denies: fever Skin: Reports: as per HPI, other (Laceration) Past Medical History Past Medical History: No Reported History History of Any Multi-Drug Resistant Organisms: None Reported Past Surgical History: No Surgical Hx Reported Additional Past Anesthesia/Blood Transfusion Reaction / Comment(s): Pt has never had anesthesia. Past Psychological History: No Psychological Hx Reported Smoking Status: Never smoker Past Alcohol Use History: None Reported Past Drug Use History: None Reported - Past Family History Father Family Medical History: No Reported History Additional Family Medical History / Comment(s): Father is healthy Mother Family Medical History: No Reported History Additional Family Medical History / Comment(s): Mother is healthy General Exam Limitations: no limitations General appearance: alert, in no apparent distress Cardiovascular Exam: Present: other (Normal pulses and capillary refill to right hand) Right Forearm Wrist exam: Present: normal inspection, full ROM. Absent: tenderness, swelling Hand Wrist exam: Present: full ROM, laceration, other (The patient has an approximately 2.5 cm superficial laceration to the right palm. No loss of sensory or motor function.). Absent: tenderness, swelling, abrasion, ecchymosis, deformity, crepitus, dislocation, erythema, amputation, nail avulsion, subungual hematoma Neuro motor exam: Present: wrist extension intact, thumb opposition intact, thumb IP flexion intact, thumb adduction intact, fingers 2-5 abduction intact Vascular: Present: normal capillary refill. Absent: vascular compromise Course Vital Signs 12/12/22 01:45 Temperature 99 F Pulse Rate 79 Respiratory 16 Rate Blood Pressure 131/93 O2 Sat by Pulse 99 Oximetry Procedures - Laceration Laceration #1 Consent Obtained: verbal consent Indication: laceration Site: hand Description: linear Depth: simple, single layer Type of Sutures: other (Skin adhesive) Technique: other (Skin adhesive) Patient Tolerated Procedure: well, no complications Medical Decision Making - Medical Decision Making This patient is 32-year-old man with injury to right palm resulting in partial thickness laceration to right palm. I did cleanse the wound, and then perform closure at the bedside with skin adhesive. Discussed appropriate further care and follow-up as well as signs of infection and the return parameters. Patient tetanus booster will be administered by nursing. Was pt. sent in by a medical professional or institution ([facility], [facility] [employer], urgent care, hospital, or detention...) When possible be specific @ -[No] Did you speak to anyone other than the patient for history (EMS, parent, family, police, friend...)? What history was obtained from this source @ -[No] Did you review nursing and triage notes (agree or disagree)? Why? @ -[I reviewed and agree with nursing and triage notes] Were old charts reviewed (outside hosp., previous admission, EMS record, old EKG, old radiological studies, urgent care reports/EKG's, detention records)? Report findings @ -[No old charts were reviewed] Differential Diagnosis (chest pain, altered mental status, abdominal pain women, abdominal pain men, vaginal bleeding, weakness, fever, dyspnea, syncope, headache, dizziness, GI bleed, back pain, seizure, CVA, palpatations, mental health, musculoskeletal)? @ -Palm laceration EKG interpreted by me (3pts min.). @ -[ X-rays interpreted by me (1pt min.). @ -[None done] CT interpreted by me (1pt min.). @ -[None done] U/S interpreted by me (1pt. min.). @ -[None done] What testing was considered but not performed or refused? (CT, X-rays, U/S, labs)? Why? @ -[None] What meds were considered but not given or refused? Why? @ -[None] Did you discuss the management of the patient with other professionals (professionals i.e. Dr., PA, [employer], lab, RT, psych nurse, social security assessor, editor managing newspaper, teacher, real estate utilization officer, casey saw operator)? Give summary @ -[No] Was smoking cessation discussed for >3mins.? @ -[No] Was critical care preformed (if so, how long)? @ -[No] Were there social determinants of health that impacted care today? How? (Homelessness, low income, unemployed, alcoholism, drug addiction, transportation, low edu. Level, literacy, decrease access to med. care, custodial, rehab)? @ -[No] Was there de-escalation of care discussed even if they declined (Discuss DNR or withdrawal of care, Hospice)? DNR status @ -[No] What co-morbidities impacted this encounter? (DM, HTN, Smoking, COPD, CAD, Cancer, CVA, ARF, Chemo, Hep., AIDS, mental health diagnosis, sleep apnea, morbid obesity)? @ -[None] Was patient admitted / discharged? Hospital course, mention meds given and route, prescriptions, significant lab abnormalities, going to OR and other pertinent info. @ -[Discharged Undiagnosed new problem with uncertain prognosis? @ -[No] Drug Therapy requiring intensive monitoring for toxicity (Heparin, Nitro, Insulin, Cardizem)? @ -[No] Were any procedures done? @ -[Laceration closer with skin glue see the procedure note Diagnosis/symptom? @ -[Right hand laceration Acute, or Chronic, or Acute on Chronic? @ -[Acute Uncomplicated (without systemic symptoms) or Complicated (systemic symptoms)? @ -[Uncomplicated Side effects of treatment? @ -[No] Exacerbation, Progression, or Severe Exacerbation? @ -[No] Poses a threat to life or bodily function? How? (Chest pain, [place], [place], pneumonia, PE, COPD, DKA, ARF, appy, cholecystitis, CVA, Diverticulitis, Homicidal, Suicidal, threat to staff... and all critical care pts) @ -[No] Disposition Clinical Impression: Laceration Disposition: HOME SELF-CARE Condition: Good Instructions (If sedation given, give patient instructions): Laceration (ED) Is patient prescribed a controlled substance at d/c from ED?: No Referrals: Erwin White DO [Primary Care Provider] - 1-2 days
[2022-12-12] MEDS ORDERED: DIPH,PERTUS(ACELL)TETVAC-LF 0.5 ML VIAL IM ONE (02:12)
[2022-12-12 02:59] VITALS: BP 127/88; PULSE 92; RESP 20; TEMP 98.5
== END 2022-12-12 02:58 | disposition home or self-care (01) ==
LOC: EC 01:37
DX: S61.411A Laceration without foreign body of right hand, initial encounter (principal); Z23 Encounter for immunization; W26.8XXA Contact with other sharp object(s), not elsewhere classified, initial encounter
CPT/HCPCS: 12001; 90471; 90715; 99282